=== PATIENT | male | born 1990 | race African-American/Black ===

== ENCOUNTER 2017-08-15 19:36 | Emergency (ER) | payer BC ==
--- NOTE | 2017-08-15 20:14 | ER Document Report ---
HPI - HPI Pain Level: 0 Notes: Patient is a 27-year-old male with no significant past medical history who presents to the ED complaining of nasal congestion/discharge, dry nonproductive cough 1 week. Patient states that he is still eating and drinking without any difficulties. He is urinating normally and having normal bowel movements. He has not been using any [id number] meds for symptoms. Patient is requesting a work note. He denies any drug allergies. Patient does admit to smoking but denies IV drug use. No other concerns or complaints at this time. Denies any current headache, fever, neck pain, sore throat, chest pain, palpitations, syncope, shortness of breath, wheeze, dyspnea, abdominal pain, nausea/vomiting/diarrhea, urinary retention, dysuria, hematuria, or rash. - ROS Systems Reviewed and Negative: Yes All other systems reviewed and negative Past Medical History - Social History Smoking Status: Current Every Day Smoker Family History: Reviewed & Not Pertinent Vertical Provider Document - CONSTITUTIONAL Agree With Documented VS: Yes Notes: PHYSICAL EXAMINATION: GENERAL: Well-appearing, well-nourished and in no acute distress. A&Ox4. Answers questions appropriately. Moves comfortably w/o notable distress HEAD: Atraumatic, normocephalic. EYES: Pupils equal round and reactive to light, extraocular movements intact, sclera anicteric, conjunctiva are normal. ENT: EAC clear b/l. TM's intact b/l without erythema, fluid, or perforation. Nares patent and with clear discharge. oropharynx no erythema without exudates. No tonsilar hypertrophy without erythema or exudate. No palatine shift. Uvula midline. No tongue protrusion. No drooling, hoarseness, or airway compromise. Moist mucous membranes. No sinus tenderness. NECK: Normal range of motion, supple without lymphadenopathy. No rigidity/ meningismus. LUNGS: Breath sounds clear to auscultation bilaterally and equal. No wheezes rales or rhonchi. No retractions HEART: Regular rate and rhythm without murmurs, rubs, gallops. ABDOMEN: Soft, nontender, nondistended abdomen. No guarding, no rebound. No masses appreciated. Normal bowel sounds present. No CVA tenderness bilaterally. No hepatosplenomegaly. NEUROLOGICAL: Normal speech, normal gait. Normal sensory, motor exams PSYCH: Normal mood, normal affect. SKIN: Warm, Dry, normal turgor, no rashes or lesions noted. - INFECTION CONTROL TRAVEL OUTSIDE OF THE [place] IN LAST 30 DAYS: No - RESPIRATORY O2 Sat by Pulse Oximetry: 98 Course - Re-evaluation Re-evalutation: 08/15/17 20:11 Patient is an afebrile, well-hydrated, 27-year-old male who presents to the ED with acute URI, suspect viral. Vitals are acceptable. PE is otherwise unremarkable. No labs or imaging warranted at this time based on H&P. Patient has no significant cardiopulmonary or immunocompromised medical conditions. Patient's lungs are clear to auscultation bilaterally without tachycardia, hypoxia, or tachypnea. Patient is tolerating p.o. without any difficulties. Low suspicion for any meningitis, sepsis, peritonsillar/pharyngeal abscess, respiratory compromise, severe dehydration, or other emergent systemic condition at this time. Patient is aware this condition can change from initial presentation and he needs to monitor symptoms closely. I will send him home with a prescription for Tessalon as well as a pocket prescription for Zithromax which he may begin with worsening symptoms after 2-3 days. Conservative measures otherwise for symptoms. Recheck with your PCM in 3-5 days. Return to the ED with any worsening/concerning symptoms otherwise as reviewed in discharge. Patient is in agreement. - Vital Signs Vital signs: Temp Pulse Resp BP Pulse Ox 98 F 58 L 16 150/74 H 98 08/15/17 19:47 08/15/17 19:47 08/15/17 19:47 08/15/17 19:47 08/15/17 19:47 Discharge - Discharge Clinical Impression: Acute URI Condition: Stable Disposition: HOME, SELF-CARE Instructions: Upper Respiratory Illness ([facility]) Additional Instructions: Maintain adequate fluid intake Take meds as directed tylenol/ibuprofen as needed over the counter cold medication as needed for symptoms Humidified air may help Wash your hands regularly Wear a mask when coughing F/u: with your PCM in 3-5 days for a recheck Return to the ED with any fever, worsening pain, chest pain, palpitations, syncope, worsening HARRIS, neck pain/stiffness, shortness of breath, wheezing, drooling, trouble swallowing/breathing, abdominal pain, n/v/d, rash, or worsening/concerning symptoms otherwise. Prescriptions: Benzonatate [Tessalon Perle 100 mg Capsule] 100 mg PO Q8HP PRN #15 cap PRN Reason: Azithromycin [Zithromax 250 mg Tablet] 250 mg PO ASDIR PRN #6 tablet PRN Reason: Forms: Elevated Blood Pressure, Smoking Cessation Education, Return to Work Referrals: [facility] [Provider Group] - Follow up as needed [facility] [Provider Group] - Follow up as needed
[2017-08-15 20:27] VITALS: BP 133/76
== END 2017-08-15 20:28 | disposition home or self-care (01) ==
LOC: ER 19:36
DX: J06.9 Acute upper respiratory infection, unspecified (principal); R05 Cough; R09.89 Other specified symptoms and signs involving the circulatory and respiratory systems; F17.200 Nicotine dependence, unspecified, uncomplicated
CPT/HCPCS: 99283

== ENCOUNTER 2017-08-31 17:50 | Emergency (ER) | payer OTHER, BC ==
[2017-08-31] MEDS ORDERED: CEFAZOLIN INJ 1 GM VIAL IV ONE (18:31)
[2017-08-31] MEDS ORDERED: FENTANYL CITRATE INJ/PF 100 MCG/2 ML AMPUL IV ONE (18:32)
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
[2017-08-31 20:47] VITALS: BP 140/90
== END 2017-08-31 20:46 | disposition home or self-care (01) ==
LOC: ER 17:50
DX: S01.511A Laceration without foreign body of lip, initial encounter (principal); S31.119A Laceration without foreign body of abdominal wall, unspecified quadrant without penetration into peritoneal cavity, initial encounter; S31.811A Laceration without foreign body of right buttock, initial encounter; S80.212A Abrasion, left knee, initial encounter; R51 Headache; M79.1 Myalgia; V49.50XA Passenger injured in collision with unspecified motor vehicles in traffic accident, initial encounter; F17.210 Nicotine dependence, cigarettes, uncomplicated; L91.0 Hypertrophic scar
CPT/HCPCS: 99284; 96375; 96365; 87040; 73562; 70450; 71260; 72125; 74177; J0690; J3010

== ENCOUNTER 2019-08-20 23:20 | Emergency (ER) | payer BC, OTHER ==
[2019-08-20] MEDS ORDERED: DIPH/PERTUSS(ACELL)/TETANUS VAC/PF 0.5 ML SYR (>=10YO) IM ONE (23:31)
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
[2019-08-20 23:36] VITALS: BP 150/81
[2019-08-21] MEDS ORDERED: LIDOCAINE 1% INJ-PF (10 MG/ML) 30 ML SDV INJ ONE (00:22)
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
[2019-08-21] MEDS ORDERED: DIPH/PERTUSS(ACELL)/TETANUS VAC/PF 0.5 ML SYR (>=10YO) IM ONE (04:00)
== END 2019-08-21 03:53 | disposition home or self-care (01) ==
LOC: ER 23:20
PROC: 0HQEXZZ Repair Left Lower Arm Skin, External Approach (ICD-10-PCS; principal; 2019-08-20)
DX: S41.112A Laceration without foreign body of left upper arm, initial encounter (principal); M79.602 Pain in left arm; X99.1XXA Assault by knife, initial encounter; F17.200 Nicotine dependence, unspecified, uncomplicated
CPT/HCPCS: 99283; 12002; J3490

== ENCOUNTER 2020-03-16 10:26 | Emergency (ER) | payer SELFPAY ==
[2020-03-16 10:35] VITALS: BP 169/105
[2020-03-16] MEDS ORDERED: HYDROMORPHONE HCL 2 MG TABLET PO ONE (10:40)
--- NOTE | 2020-03-16 10:44 | ER Document Report ---
ED Medical Screen (RME) - General Chief Complaint: Post Surgical Pain Stated Complaint: LEFT ARM PAIN Time Seen by Provider: 03/16/20 10:36 TRAVEL OUTSIDE OF THE U.S. IN LAST 30 DAYS: No - HPI Notes: 03/16/20 10:40 29-year-old male to the emergency department with complaints of progressively worsening left forearm pain that has not been well controlled by his Roxicodone 5 mg written by his orthopedic surgeon from [facility] in [place]. Apparently yesterday he had surgery on the forearm for fracture. He was written for 5 mg oxycodone. He states that he called his surgeon and said that he had pretty bad pain. They asked him to double up his Roxicodone. States he took his last dose of about 3 AM. He states that that did not control his pain. He states that he sustained this fracture after he slipped in the shower. He admits to subjective fevers and chills last night but did not measure temperature. Denies any nausea or vomiting. Patient very tearful in triage. He does have a good pulse and fingers are warm. He has increased pain with movement of the hand. There appears to be some bleeding through the splints that he is in. I performed a brief medical screening exam on the patient determined that the patient needs further evaluation and management by main side provider. I have placed initial orders to help expedite care. - Related Data Allergies/Adverse Reactions: No Known Allergies Allergy (Verified 08/31/17 17:58) Past Medical History Renal/ Medical History: Denies: Hx Peritoneal Dialysis - Immunizations Hx Diphtheria, Pertussis, Tetanus Vaccination: No Physical Exam - Vital signs Vitals: Temp Pulse Resp BP Pulse Ox 98.1 F 62 20 169/105 H 96 03/16/20 10:33 03/16/20 10:33 03/16/20 10:33 03/16/20 10:33 03/16/20 10:33 Course - Vital Signs Vital signs: Temp Pulse Resp BP Pulse Ox 98.1 F 62 20 169/105 H 96 03/16/20 10:33 03/16/20 10:33 03/16/20 10:33 03/16/20 10:33 03/16/20 10:33
[2020-03-16 11:17] LABS: ABSOLUTE BASOPHILS # (AUTO) 0.1 10^3/uL (0.0-0.2); ABSOLUTE LYMPHOCYTES (AUTO) 2.7 10^3/uL (0.5-4.7); ABSOLUTE NEUT (AUTO) 8.3 10^3/uL (1.7-8.2); BASOPHILS % (AUTO) 0.7 % (0-2); EOSINOPHILS % (AUTO) 0.3 % (0-6); HEMATOCRIT 38.9 % (37.9-51.0); HEMOGLOBIN 13.4 g/dL (13.5-17.0); LYMPHOCYTES % (AUTO) 22.3 % (13-45); MEAN CORPUSCULAR HEMOGLOBIN 28.9 pg (27.0-33.4); MEAN CORPUSCULAR HGB CONC 34.6 g/dL (32.0-36.0); MEAN CORPUSCULAR VOLUME 84 fl (80-97); PLATELET COUNT 314 10^3/uL (150-450); RED BLOOD COUNT 4.65 10^6/uL (4.35-5.55); RED CELL DISTRIBUTION WIDTH 14.9 % (11.5-14.0); SEGMENTED NEUTROPHILS % (AUTO) 68.7 % (42-78); TOTAL CELLS COUNTED % (AUTO) 100 %
[2020-03-16 11:40] LABS: ALBUMIN 4.8 g/dL (3.5-5.0); ALKALINE PHOSPHATASE 82 U/L (38-126); ANION GAP 12 (5-19); ASPARTATE AMINO TRANSFERASE 30 U/L (17-59); BILIRUBIN,DIRECT 0.2 mg/dL (0.0-0.4); BILIRUBIN,TOTAL 0.8 mg/dL (0.2-1.3); BLOOD UREA NITROGEN 12 mg/dL (7-20); CARBON DIOXIDE 24 mmol/L (22-30); CHLORIDE 100 mmol/L (98-107); GLUCOSE 100 mg/dL (75-110); TOTAL PROTEIN 8.1 g/dL (6.3-8.2)
--- NOTE | 2020-03-16 12:25 | RADIOLOGY REPORT (SQ) ---
EXAM DESCRIPTION: FOREARM LEFT COMPLETED DATE/TIME: 03/16/2020 12:17 pm REASON FOR STUDY: increased pain to forearm, s/p surgery yesterday COMPARISON: None. NUMBER OF VIEWS: Two views. TECHNIQUE: Two radiographic images acquired of the left forearm, including elbow and wrist in at [facility] one projection. LIMITATIONS: None. FINDINGS: MINERALIZATION: Normal. BONES: Postsurgical changes with internal fixation of the distal ulna. Skin clips remain in place. Comminuted distal ulnar fracture is noted. SOFT TISSUES: No obvious swelling or foreign body. OTHER: No other significant finding. IMPRESSION: Posttraumatic and postsurgical changes of the distal left ulna. No unexpected postopera tive findings. TECHNICAL DOCUMENTATION: JOB ID: [id number] 2010 [employer]- All Rights Reserved Reading location - IP/workstation name: [email or web address]
--- NOTE | 2020-03-16 14:22 | ER Document Report ---
ED General - General Chief Complaint: Post Surgical Pain Stated Complaint: LEFT ARM PAIN Time Seen by Provider: 03/16/20 10:36 TRAVEL OUTSIDE OF THE U.S. IN LAST 30 DAYS: No - HPI Notes: 29-year-old male to the emergency department with complaints of left forearm pain that began yesterday and is gotten progressively worse. Of note he had a internal fixation of his ulna of the left forearm. He states he broke it when he accidentally slipped and fell in the shower. He is being followed at [facility] by JAVY Soliz. He states that he has been given her oxycodone 5 mg. He called the office and let them know that he was having a lot of pain last night they told him he could take 2 oxycodone's every 4 hours. He was told that if the pain did not get better after doing that that he needed to come to the emergency department. He took 2 oxycodone at 3 AM and he states that did not help his pain. He decided to come seek medical attention thereafter. Denies any measured fevers or chills. He is post to see JAVY Soliz at [facility] on March 23. - Related Data Allergies/Adverse Reactions: No Known Allergies Allergy (Verified 08/31/17 17:58) Past Medical History - General Information source: Patient - Social History Smoking Status: Current Every Day Smoker Chew tobacco use (# tins/day): No Frequency of alcohol use: None Drug Abuse: None Family History: Reviewed & Not Pertinent Patient has homicidal ideation: No Renal/ Medical History: Denies: Hx Peritoneal Dialysis - Immunizations Hx Diphtheria, Pertussis, Tetanus Vaccination: No Review of Systems - Review of Systems Constitutional: denies: Chills, Fever EENT: No symptoms reported Cardiovascular: denies: Chest pain, Palpitations, Syncope, Dizziness, Lightheaded Respiratory: denies: Cough, Short of breath Gastrointestinal: denies: Abdominal pain, Diarrhea, Nausea, Vomiting Musculoskeletal: See HPI Skin: See HPI Hematologic/Lymphatic: No symptoms reported Neurological/Psychological: No symptoms reported -: Yes All other systems reviewed and negative Physical Exam - Vital signs Vitals: Temp Pulse Resp BP Pulse Ox 98.1 F 62 20 169/105 H 96 03/16/20 10:33 03/16/20 10:33 03/16/20 10:33 03/16/20 10:33 03/16/20 10:33 Interpretation: Hypertensive Notes: Patient with history of hypertension - General General appearance: Appears well, Alert In distress: Moderate Notes: Moderate pain distress. Patient is tearful in triage holding his left arm - HEENT Head: Normocephalic, Atraumatic Eyes: Normal Pupils: PERRL - Respiratory Respiratory status: No respiratory distress Chest status: Nontender Breath sounds: Normal. No: Rales, Rhonchi, Wheezing Chest palpation: Normal - Cardiovascular Rhythm: Regular Heart sounds: Normal auscultation Murmur: No - Abdominal Inspection: Normal Distension: No distension Bowel sounds: Normal Tenderness: Nontender. No: Tender, McBurney's point, Tang's sign, Guarding Organomegaly: No organomegaly - Extremities Forearm: Other - The left forearm is in a ulnar gutter splint. Removal of the splint shows some mild leakage from wound. However overall the incision from his internal fixation looks very well. There are [address] There is no active drainage from the site. There is edema and it is tender to palpation but not out of proportion to exam. Compartments appear soft. Hand is not swollen. Radial pulses are intact and equal. Cap refill is less than 2 seconds. 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 No: Pronator drift Sensory: Normal - Psychological Associated symptoms: Normal affect, Normal mood - Skin Skin Temperature: Warm Skin Moisture: Dry Skin Color: Normal Skin irregularity: other - Surgical incision site to the left forearm. See extremities for further conversation about left arm Course - Re-evaluation Re-evalutation: 03/16/20 Spoke with JAVY Soliz at [facility]. We reviewed x-ray results as well as lab work plus negative Doppler study. She states that she had informed the patient that he should expect the worst pain in the next 2 days given his nerve block is worn out. She also states that the patient can continue to take 2 oxycodone every 4 hours and may call the office to get a extension of his pain medicine. We agree that we do not think patient requires antibiotics. She will see the patient in the office on the . - Vital Signs Vital signs: Temp Pulse Resp BP Pulse Ox 98.1 F 62 20 169/105 H 96 03/16/20 10:33 03/16/20 10:33 03/16/20 10:33 03/16/20 10:33 03/16/20 10:33 - Laboratory Result Diagrams: 03/16/20 10:55 03/16/20 10:55 Laboratory results interpreted by me: 03/16/20 03/16/20 10:55 10:55 WBC 12.0 H Hgb 13.4 L RDW 14.9 H Absolute Neuts (auto) 8.3 H Sodium 136.2 L - Diagnostic Test Radiology reviewed: Image reviewed, Reports reviewed Discharge - Discharge Clinical Impression: Post-op pain, Left forearm pain Condition: Stable Disposition: HOME, SELF-CARE Instructions: Arm Pain, Nonspecific ([facility]) Additional Instructions: Please take your oxycodone 2 tablets every 4 hours without fail. You may call your orthopedics office to get an another prescription for your pain medicine. Keep it elevated and iced. Follow-up with orthopedist in 1 week as scheduled. Follow up with Leanne Soliz at [facility] in [place].
--- NOTE | 2020-03-16 14:46 | RADIOLOGY REPORT (SQ) ---
EXAM DESCRIPTION: VENOUS UNILATERAL UPPER IMAGES COMPLETED DATE/TIME: 03/16/2020 2:38 pm REASON FOR STUDY: upper arm pain, fracture repair yesterday COMPARISON: None. TECHNIQUE: Dynamic and static montoya scale and color images acquired of the left arm venous system. Se lected spectral images acquired with additional compression and augmentation maneuvers. The contralat eral subclavian vein and internal jugular vein were also imaged. Images stored on PACS. LIMITATIONS: None. FINDINGS: INTERNAL JUGULAR VEIN: Normal phasicity, compression, augmentation. No visualized echogeni c material on montoya scale. No defects on color images. Comparison opposite side normal. SUBCLAVIAN VEIN: Normal compression, augmentation. No visualized echogenic material on montoya scale. No defects on color images. AXILLARY VEIN: Normal compression, augmentation. No visualized echogenic material on montoya scale. No d efects on color images. BRACHIAL VEIN: Normal compression, augmentation. No visualized echogenic material on montoya scale. No d efects on color images. BASILIC VEIN: Normal compression, augmentation. No visualized echogenic material on montoya scale. No de fects on color images. CEPHALIC VEIN: Normal compression, augmentation. No visualized echogenic material on montoya scale. No d efects on color images. OTHER: No other significant finding. CONTRALATERAL SUBCLAVIAN VEIN AND INTERNAL JUGULAR VEIN: Normal phasicity, compression and augmentation. No visualized echogenic material on montoya scale. No de fects on color images. IMPRESSION: NO EVIDENCE DVT OR SVT IN THE LEFT ARM. TECHNICAL DOCUMENTATION: JOB ID: [id number] 2010 [employer]- All Rights Reserved Reading location - IP/workstation name: [email or web address]
== END 2020-03-16 14:47 | disposition home or self-care (01) ==
LOC: ER 10:26
DX: G89.18 Other acute postprocedural pain (principal); M79.632 Pain in left forearm; F17.200 Nicotine dependence, unspecified, uncomplicated
CPT/HCPCS: 36415; 80053; 85025; 93971; 99285

== ENCOUNTER 2020-04-14 11:33 | Emergency (ER) | payer SELFPAY ==
--- NOTE | 2020-04-14 12:41 | ER Document Report ---
HPI - HPI Patient complains to provider of: Left hand laceration Time Seen by Provider: 04/14/20 12:35 Context: 30-year-old male with no previous medical problems presents to the emergency room with a laceration to the palm of his left hand. States last night while he was cutting an apple the knife slipped causing a laceration to the left palm. Bleeding is controlled. Patient is right-handed. Tetanus is up-to-date. Associated Symptoms: None Exacerbated by: Movement Relieved by: Remaining still Similar symptoms previously: No Recently seen / treated by doctor: No - ROS Systems Reviewed and Negative: Yes All other systems reviewed and negative - NEURO Neurology: DENIES: Weakness - REPRODUCTIVE Reproductive: REPORTS: : - MUSCULOSKELETAL Musculoskeletal: REPORTS: Extremity pain - DERM Skin Color: Erythema Skin Problems: Laceration Past Medical History - General Information source: Patient - Social History Smoking Status: Current Some Day Smoker Frequency of alcohol use: Occasional Drug Abuse: None Family History: Reviewed & Not Pertinent Renal/ Medical History: Denies: Hx Peritoneal Dialysis - Immunizations Immunizations up to date: Yes Hx Diphtheria, Pertussis, Tetanus Vaccination: Yes Vertical Provider Document - CONSTITUTIONAL Agree With Documented VS: Yes Exam Limitations: No Limitations General Appearance: Mild Distress - INFECTION CONTROL TRAVEL OUTSIDE OF THE [place].S. IN LAST 30 DAYS: No - HEENT HEENT: Atraumatic, Normocephalic - NECK Neck: Normal Inspection, Supple - RESPIRATORY Respiratory: Breath Sounds Normal, No Respiratory Distress - CARDIOVASCULAR Cardiovascular: Regular Rate, Regular Rhythm, No Murmur - MUSCULOSKELETAL/EXTREMETIES Musculoskeletal/Extremeties: Tender - Tenderness to the palmar aspect of the left hand where a 2 cm laceration is noted. It is not warm or tender to palpation. Mild erythema. Bleeding is controlled - NEURO Level of Consciousness: Awake, Alert, Appropriate Motor/Sensory: No Motor Deficit, No Sensory Deficit Notes: Positive left radial pulse. Capillary refill less than 3 seconds. Neurovascularly intact. - DERM Integumentary: Warm, Dry, Laceration - 2 cm laceration noted to the palmar asp ect of the left hand. No active bleeding is noted. Is tender to palpation. Wound is already in healing stages. Suturing is not required. Course - Re-evaluation Re-evalutation: 04/14/20 12:50 Patient was counseled that the laceration is too old to suture at this time. Is already starting to partially heal. Wound was cleansed and Steri-Strips applied by nursing staff as documented. He was counseled on proper wound care. Steri- Strips will fall off in 7 to 10 days. Outpatient follow-up with a primary care physician if not improving in 2 to 3 days. On-call physician was provided. Patient was given strict return to the emergency room guidelines. Return for any new or worsening symptoms. All questions were answered. Patient verbalized understanding and agrees with plan of care. 04/14/20 12:54 - Vital Signs Vital signs: Temp Pulse Resp BP Pulse Ox 98.4 F 98 16 140/89 H 100 04/14/20 11:37 04/14/20 11:37 04/14/20 11:37 04/14/20 11:37 04/14/20 11:37 Discharge - Discharge Clinical Impression: Laceration of left hand Qualifiers: Encounter type: initial encounter Foreign body presence: without foreign body Qualified Code(s): S61.412A - Laceration without foreign body of left hand, initial encounter Condition: Stable Disposition: HOME, SELF-CARE Instructions: Hand Laceration ([facility]), Non-Sutured Laceration ([facility]) Additional Instructions: Keep wound clean and dry. Steri-Strips will fall off in 7 to 10 days. Outpatient follow-up with a primary care physician if not improving in 2 to 3 days. Return to emergency room for any new or worsening symptoms. Referrals: AGNO [Primary Care Provider] - Follow up as needed MAEVE RAMSAY DO [NO LOCAL MD] - Follow up as needed
[2020-04-14 13:08] VITALS: BP 138/86
--- OUTSIDE RECORDS SUMMARY | 2020-04-15 15:30 | XMS REPORT ---
:[address] [facility] Address [address] [address] Care Team Providers Name Role Phone Unavailable Unavailable Unavailable Allergies, Adverse Reactions, Alerts Allergy Allergy Status Severity Reaction(s) Onset Inactive Treating C omments Name Type Date Date Clinician No Known Allergy to Active Allergies substance Medications Ordered Filled Start Stop Current Ordering Indication Dosage Frequency Signature Comments Components Medication Medication Date Date Medication? Clinician (SIG) Name Name oxycodone 5 2019-06 No 5mg oxycodone mg 0-13 5 mg tablet,oral 00:00: tablet,ora ONLY (not 00 l ONLY feeding (not tubes) 5 feeding mg by oral tubes) 5 route. mg by oral route. [place] 5 No 1 Q8H [place] 5 mg-325 mg mg-325 mg tablet Take tablet 1 tablet Take 1 every 8 tablet hours by every 8 oral route hours by as needed. oral route as needed. oxycodone 5 No 1 Q5H oxycodone mg tablet 5 mg Take 1 tab tablet po q6hr prn Take 1 tab pain po q6hr prn pain [place] 10 No 1 Q6H [place] 10 mg-325 mg mg-325 mg tablet Take tablet 1 tablet Take 1 every 6 tablet hours by every 6 oral route hours by as needed. oral route as needed. Keflex 500 No Keflex 500 mg capsule mg capsule Take 1 Take 1 capsule(s) capsule(s) EVERY 6 EVERY 6 hours for 2 hours for days 2 days following following surgery surgery oxycodone-a No oxycodone- cetaminophe acetaminop n 5 mg-325 hen 5 mg tablet mg-325 mg TK 1 T PO Q tablet TK 6 H FOR UP 1 T PO Q 6 TO 5 DAYS H FOR UP PRF PAIN TO 5 DAYS PRF PAIN tramadol 50 No 1 Q6H tramadol mg tablet 50 mg Take 1 tablet tablet Take 1 every 6 tablet hours by every 6 oral route hours by as needed. oral route as needed. Zofran 4 mg No 1 BID Zofran 4 tablet Take mg tablet 1 tablet Take 1 twice a day tablet by oral twice a route as day by needed for oral route nausea. as needed for nausea. Problems This patient has no known problems. Procedures Procedure Date / Time Performed Performing Clinician Jerald morales XR, forearm 2020-03-25 00:00:00 XR, ankle 2020-03-08 00:00:00 XR, forearm 2020-03-08 00:00:00 open reduction internal fixation, 2020-03-08 00:00:00 ulnar fracture (SURG) XR, ankle 2020-02-16 00:00:00 orthopaedic surgery (SURG) 2020-01-27 00:00:00 Results This patient has no known results. Assessments Condition Name Status Diagnosis Date Treating Clinici an Closed fracture of shaft of ulna Active 2020-03-18 10:5 6:27 Pain of left wrist Active 2020-03-08 11:44:10 Postoperative visit Active 2020-03-08 07:41:16 Pain of left forearm Active 2020-03-08 11:56:28 Closed fracture of shaft of ulna Active 2020-03-08 12:1 4:23 Postoperative visit Active 2020-02-16 11:25:06 Closed fracture of lateral malleolus of Active 11:14:45 right fibula Encounters Start End Encounter Admission Attending Care Care Encounter Date/Time Date/Time Type Type Clinicians Facility Department ID 2020-03-25 2020-03-25 Vivi [facility] [id number] 00:00:00 00:00:00 heather Patrick P.A. , P.A. [id number] PA-C: [address] [place] [phone], Ph. 2020-03-08 2020-03-08 [facility] [id number] 00:00:00 00:00:00 MD Wendi: Salima romero , P.A. [id number] [address] [place] [phone], Ph. 2020-02-16 2020-02-16 Aiden C [facility] [id number] 00:00:00 00:00:00 heather Zaragoza P.A. , P.A. [id number] PA-C: [address] [place] [phone], Ph. 2020-01-27 2020-01-27 Aiden Wong [facility] [id number] 00:00:00 00:00:00 heather Zaragoza P.A. , P.A. [id number] PA-C: [address] [place] [phone], Ph. Plan of Treatment Planned Activity Planned Date Details Comments Future Appointment 2020-04-20 13:30:00 Aiden Bernabe Nik [address] [place] [phone] Social History Smoking Status Start Date Stop Date Unknown If Ever Smoked Vital Signs Vital Name Observation Time Observation Value Comments Height 2020-03-25 00:00:00 74 [in_i] BMI (Body Mass Index) 2020-03-25 00:00:00 27 kg/m2 Body Weight 2020-03-25 00:00:00 210 [lb_av] Height 2020-03-08 00:00:00 74 [in_i] BMI (Body Mass Index) 2020-03-08 00:00:00 27 kg/m2 Body Weight 2020-03-08 00:00:00 210 [lb_av] BMI (Body Mass Index) 2020-01-27 00:00:00 27 kg/m2 Body Weight 2020-01-27 00:00:00 210 [lb_av] Height 2020-01-27 00:00:00 74 [in_i] Hospital Discharge Instructions 1. Closed fracture of lateral malleolus of right fibula Keflex 500 mg capsule Zofran 4 mg tablet tramadol 50 mg tablet orthopaedic surgery ([facility]UR[facility]) Discussion Note: None recorded. Patienteducational handouts: No information available.
== END 2020-04-14 13:08 | disposition home or self-care (01) ==
LOC: ER 11:33
DX: S61.412A Laceration without foreign body of left hand, initial encounter (principal); W26.0XXA Contact with knife, initial encounter; Y93.G9 Activity, other involving cooking and grilling; F17.200 Nicotine dependence, unspecified, uncomplicated
CPT/HCPCS: 99282